=== PATIENT | female | born 2000 | race Caucasian/White ===

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

== ENCOUNTER 2022-05-27 19:33 | Emergency (ER) | payer MEDICAID ==
[~2022-05-27 19:33] MED LIST changes: +CEPH500T PO
--- NOTE | 2022-05-27 19:57 | ED GU-Female ---
General Stated Complaint: BLEEDING DURING Source: patient History of Present Illness Date Seen by Provider: May 27, 2022 Time Seen by Provider: 19:40 Initial Comments 21-year-old female presenting with complaints of having some vaginal bleeding starting approximately 30 minutes ago. She states that when she went to go to the bathroom she had noticed some blood and had some blood on the tissue when she wiped after urinating. She denies any pelvic pain or cramping. She had her last normal menstrual period April 21. She has been actively trying to get . She denies having any vaginal discharge or pain with urination. She denies any chronic medical conditions or medications that she takes on a scheduled basis. She plans to try and follow-up with Dr. Escalera from the [facility] for this . She had previously seen a provider in [place] for her first . She is and denies any complications or problems with the initial . She reports that she is under extra stress and thinks that may have triggered some of her symptoms tonight as she just found out last night that her sister is . Timing/Duration: just prior to arrival Severity/Quality: mild (spotting without pain and some pink tinge on the tissue when she wiped after urination) Activities at Onset: emotional stress Prior Genitourinary Problems: none Sexual [place] History: less than 2 months ago, single partner Modifying Factors: Worsens With Urinating (pink tinge on tissue paper after wiping) Associated Symptoms: No abdominal pain, No diaphoresis, No dysuria, No fever/chills, No loss of bladder control, No lower back pain, No lumps, No mass, No nausea/vomiting, No nocturia, No polyuria, No swelling, No syncope, No urinary frequency Allergies and Home Medications Allergies Coded Allergies: diphenhydramine (Unverified Adverse Reaction, Unknown, 05/27/22) Patient Home Medication List Home Medication List Reviewed: Yes Cephalexin (Cephalexin) 500 Mg Capsule, 500 MG PO TID Prescribed by: SHAHRZAD CURRY on 05/27/222024 Discontinued Medications Azithromycin (Azithromycin) 250 Mg Tablet, 250 MG PO DAILY Discontinued Reason: Referral/FU Appt-Addtl Prescribed by: ROSALBA PEREZ on 12/27/19 1504 Last Action: Discontinued Cephalexin (Cephalexin) 500 Mg Tablet, 500 MG PO QID Discontinued Reason: Referral/FU Appt-Addtl Prescribed by: KERRY KO on 10/24/212242 Last Action: Discontinued Hydroxyzine HCl (Hydroxyzine HCl) 25 Mg Tablet, 25 MG PO TID Discontinued Reason: Referral/FU Appt-Addtl Prescribed by: ROSALBA PEREZ on 11/14/192222 Last Action: Discontinued Lisdexamfetamine Dimesylate (Vyvanse) 20 Mg Capsule, (Reported) Discontinued Reason: Referral/FU Appt-Addtl Entered as Reported by: ARUN OMALLEY on 07/06/09 1314 Last Action: Discontinued Review of Systems Review of Systems Constitutional: No chills, No fever EENTM: no symptoms reported Respiratory: no symptoms reported Cardiovascular: no symptoms reported Gastrointestinal: no symptoms reported Genitourinary: see HPI : Yes LMP: Apr 21, 2022 Musculoskeletal: no symptoms reported Skin: No rash Psychiatric/Neurological: Denies Headache Past Ipumsxm-Zfaccc-Smfrzf Hx Patient Social History Tobacco Use?: No Use of E-Cig and/or Vaping dev: No Substance use?: No Alcohol Use?: No Immunizations Up To Date PED Vaccines UTD: Yes Seasonal Allergies Seasonal Allergies: No Past Medical History Surgeries: No Respiratory: No Cardiac: No Neurological: No Reproductive Disorders: No Sexually Transmitted Disease: No Genitourinary: No Gastrointestinal: No Musculoskeletal: No Endocrine: No HEENT: No Cancer: No Psychosocial: Yes Depression Integumentary: No Blood Disorders: No Physical Exam Vital Signs Vital Signs - First Documented 05/27/22 19:39 Temp 36.5 Pulse 100 Resp 16 B/P (MAP) 127/67 (87) Pulse Ox 100 O2 Delivery Room Air Capillary Refill : Height, Weight, BMI Height: 5'3.00" Weight: 190lbs. oz. 86.049504ju; 37.00 BMI Method:Stated General Appearance: WD/WN, no apparent distress HEENT: PERRL/EOMI, pharynx normal Neck: non-tender, full range of motion, supple Cardiovascular: normal peripheral pulses, regular rate, rhythm Respiratory: chest non-tender, lungs clear, normal breath sounds, no respiratory distress, no accessory muscle use Gastrointestinal: normal bowel sounds, non tender, no pulsatile mass Rectal: deferred Extremities: normal range of motion, non-tender, normal capillary refill Neurologic/Psychiatric: alert, oriented x 3 Skin: normal color, warm/dry Progress/Results/Core Measures Suspected Sepsis SIRS Temperature: Pulse: Respiratory Rate: Laboratory Tests 05/27/22 20:00: White Blood Count 8.6 Blood Pressure / Mean: Laboratory Tests 05/27/22 20:00: Platelet Count 222 Results/Orders Lab Results Laboratory Tests Test 05/27/22 19:40 05/27/22 20:00 Range/Units Urine Color RED H Urine Clarity CLOUDY Urine pH 6.5 5-9 Urine Specific [place] 1.025 H 1.016-1.022 Urine Protein 2+ H NEGATIVE Urine Glucose (UA) NEGATIVE NEGATIVE Urine Ketones NEGATIVE NEGATIVE Urine Nitrite NEGATIVE NEGATIVE Urine Bilirubin NEGATIVE NEGATIVE Urine Urobilinogen 0.2 < = 1.0 MG/DL Urine Leukocyte Esterase 2+ H NEGATIVE Urine RBC (Auto) 3+ H NEGATIVE Urine RBC >100 H /HPF Urine WBC 5-10 H /HPF Urine Squamous Epithelial Cells 2-5 /HPF Urine Crystals NONE /LPF Urine Bacteria FEW H /HPF Urine Casts NONE /LPF Urine Mucus SMALL H /LPF Urine Culture Indicated YES White Blood Count 8.6 4.3-11.0 10^3/uL Red Blood Count 4.71 3.80-5.11 10^6/uL Hemoglobin 10.9 L 11.5-16.0 g/dL Hematocrit 35 35-52 % Mean Corpuscular Volume 75 L 80-99 fL Mean Corpuscular Hemoglobin 23 L 25-34 pg Mean Corpuscular Hemoglobin Concent 31 L 32-36 g/dL Red Cell Distribution Width 15.2 H 10.0-14.5 % Platelet Count 222 130-400 10^3/uL Mean Platelet Volume 10.7 9.0-12.2 fL Immature Granulocyte % (Auto) 0 % Neutrophils (%) (Auto) 73 42-75 % Lymphocytes (%) (Auto) 18 12-44 % Monocytes (%) (Auto) 7 0-12 % Eosinophils (%) (Auto) 1 0-10 % Basophils (%) (Auto) 1 0-10 % Neutrophils # (Auto) 6.3 1.8-7.8 10^3/uL Lymphocytes # (Auto) 1.5 1.0-4.0 10^3/uL Monocytes # (Auto) 0.6 0.0-1.0 10^3/uL Eosinophils # (Auto) 0.1 0.0-0.3 10^3/uL Basophils # (Auto) 0.0 0.0-0.1 10^3/uL Immature Granulocyte # (Auto) 0.0 0.0-0.1 10^3/uL Human Chorionic Gonadotropin, Quant 4158 H <5 MIU/ML My Orders Orders - SHAHRZAD CURRY MD Ua Culture If Indicated (05/27/22 19:40) Hcg,Quantitative (05/27/22 19:40) Cbc With Automated Diff (05/27/22 19:40) Urine Bedside (05/27/22 19:40) Urine Culture (05/27/22 19:40) Vital Signs/I&O 05/27/22 19:39 Temp 36.5 Pulse 100 Resp 16 B/P (MAP) 127/67 (87) Pulse Ox 100 O2 Delivery Room Air Capillary Refill : Progress Note #1: Progress Note Potential diagnosis of threatened miscarriage, vaginal bleeding during , ectopic , urinary tract infection Obtain urine to check for infection as well as a bedside . Ordered blood to check blood count looking for signs of anemia or elevation of the white count for infection. Quantitative hCG from serum to have a baseline hormone level. If she continues to have bleeding or develops pain they can repeat this in 36 to 48 hours to see if it is changing. Can also order outpatient ultrasound if needed for elevated hCG level and developing pain with worsening bleeding. Patient denies having intercourse or anything just prior to the vaginal bleeding other than being under extra stress since she just found out that her sister . Defer vaginal speculum exam to avoid additional cervix irritation. If she has heavier bleeding or develops pain then may need to perform speculum exam. Progress Note #2: Progress Note Blood count showed hemoglobin of 10.9 with an MCV of 75. This would be consistent with some possible iron deficiency anemia. Have patient see about starting vitamins with iron. The urinalysis had shown some leukocyte Estrace 2+ with bacteria and white blood cells in addition to the blood. Will prescribe 5-day course of cephalexin 500 mg p.o. 3 times daily to treat for urinary tract infection during . In terms of the quantitative hCG level her test came back at 4158. This is within range for early at approximately 5 weeks estimated gestational age based off of her last menstrual period. Counseled patient that if she had heavier bleeding she should return or be seen again. Have a repeat hormone level test in approximately 48 to 72 hours. Patient states she is going on to have blood work done for the to get established with Dr. Escalera. Counseled that if she has pain, fever over 101 F, or bleeding to point that she saturates more than a pad an hour for 2 hours she should return or be rechecked. There is a potential for miscarriage with any bleeding during but she has a reason for spotting between stress from learning of her sister's and having UTI. Counseled to avoid inserting anything in the vagina until she is seen in clinic for follow up. No sex and no tampons. If she has pain or heavier bleeding an ultrasound may be done to look for ectopic or incomplete miscarriage. Departure Impression Primary Impression: Spotting during in first trimester Additional Impression: UTI (urinary tract infection) in in first trimester Disposition: 01 HOME, SELF-CARE Condition: Stable Departure-Patient Inst. Decision time for Depature: 20:23 Referrals: [facility] (PCP/Family) Primary Care Physician DONTA SYED HOLLY R MD Patient Instructions: Bleeding in Early ED, Urinary Tract Infections in , Bleeding In Early Add. Discharge Instructions: Stay well hydrated and drink plenty of water and electrolyte drinks. Take the antibiotic for urine infection in early for the next 5 days. Your Quantitative HCG hormone level in the blood for your is 4,158. If having continued spotting/bleeding you should have this lab rechecked in 48 to 72 hours. If having increased bleeding where you saturate more than 1 pad an hour for 2 hours, pelvic cramping, fever over 101 F then return or be seen in clinic. Call [facility] clinic in am to see about follow up with Dr. Escalera for and for your symptoms. Dr. Syed with [facility] is another option for provider to follow up with for your spotting and this . No sex or anything inserted in the vagina until after you are seen in clinic for follow up. Having sex or inserting tampons can cause worsening bleeding Scripts Cephalexin (Cephalexin) 500 Mg Capsule 500 MG PO TID for UTI for 5 Days, #15 CAP 0 Refills Prov: SHAHRZAD CURRY MD 05/27/22 SHAHRZAD CURRY MD May 27, 2022 19:57
[2022-05-27 19:59] LABS: BASOPHILS % (AUTO) 1 % (0-10); EOSINOPHILS # (AUTO) 0.1 10^3/uL (0.0-0.3); EOSINOPHILS % (AUTO) 1 % (0-10); HEMATOCRIT 35 % (35-52); HEMOGLOBIN 10.9 g/dL (11.5-16.0); LYMPHOCYTES # (AUTO) 1.5 10^3/uL (1.0-4.0); LYMPHOCYTES % (AUTO) 18 % (12-44); MEAN CORPUSCULAR HEMOGLOBIN 23 pg (25-34); MEAN CORPUSCULAR HGB CONC 31 g/dL (32-36); MEAN CORPUSCULAR VOLUME 75 fL (80-99); MEAN PLATELET VOLUME 10.7 fL (9.0-12.2); MONOCYTES # (AUTO) 0.6 10^3/uL (0.0-1.0); MONOCYTES % (AUTO) 7 % (0-12); NEUTROPHILS # (AUTO) 6.3 10^3/uL (1.8-7.8); NEUTROPHILS % (AUTO) 73 % (42-75); PLATELET COUNT 222 10^3/uL (130-400); WHITE BLOOD COUNT 8.6 10^3/uL (4.3-11.0)
[2022-05-27 20:00] LABS: BILIRUBIN,URINE NEGATIVE (NEGATIVE); CLARITY,URINE CLOUDY; COLOR,URINE RED; GLUCOSE, URINE (UA) NEGATIVE (NEGATIVE); KETONES,URINE NEGATIVE (NEGATIVE); LEUKOCYTE ESTERASE ,URINE 2+ (NEGATIVE); NITRITE,URINE NEGATIVE (NEGATIVE); PH,URINE 6.5 (5-9); PROTEIN,URINE 2+ (NEGATIVE)
[2022-05-27 20:09] LABS: BACTERIA,URINE FEW /HPF; RBC,URINE >100 /HPF
[2022-05-27] MEDS ORDERED: CEPH500C PO (20:25)
[2022-05-27 20:35] VITALS: BP 127/67
== END 2022-05-27 20:35 | disposition home or self-care (01) ==
LOC: EDUNIT# 19:33 → ER FS 19:35
DX: O26.851 Spotting complicating pregnancy, first trimester (principal); O23.41 Unspecified infection of urinary tract in pregnancy, first trimester; N39.0 Urinary tract infection, site not specified; Z28.310 Unvaccinated for COVID-19; Z3A.00 Weeks of gestation of pregnancy not specified
CPT/HCPCS: 36415; 81000; 84702; 84703; 85025; 87088

== ENCOUNTER 2022-06-08 23:58 | Emergency (ER) | payer MEDICAID ==
[~2022-06-08] VITALS: Ht 160 cm; Wt 104.0 kg
[~2022-06-08 23:58] MED LIST changes: +CEPH500C PO
--- NOTE | 2022-06-09 00:34 | ED General ---
General Chief Complaint: Exposure Stated Complaint: NEEDLESTICK Source of Information: Patient Exam Limitations: No Limitations History of Present Illness Date Seen by Provider: Jun 09, 2022 Time Seen by Provider: 00:34 Initial Comments Patient is a 21-year-old female who presents to the emergency room with chief complaint of concern for needlestick injury to the index finger of her left hand. 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 She went to recap the needle and stuck her index finger on the lateral aspect with the insulin needle. It did not bleed. No other complaints of illness or injury. Her boss advised her to come to the ER to get "checked" this evening. Patient states she is , first day of her last menstrual cycle was April 21. She did have some spotting/bleeding about 2 weeks ago, none currently, no pain. Patient does not take any daily medications. She is a G2, P1. She has scheduled care through [facility] on June 24. She is reporting the injury to [employer]. this evening. Timing/Duration: 4-6 Hours (at 1930) Severity: Mild Associated Systoms: Denies Symptoms Allergies and Home Medications Allergies Coded Allergies: diphenhydramine (Unverified Adverse Reaction, Unknown, Rash, 06/09/22) Patient Home Medication List Home Medication List Reviewed: Yes Cephalexin (Cephalexin) 500 Mg Capsule, 500 MG PO TID Prescribed by: SHAHRZAD CURRY on 05/27/222024 Review of Systems Review of Systems Constitutional: see HPI EENTM: no symptoms reported Respiratory: no symptoms reported Cardiovascular: no symptoms reported Gastrointestinal: no symptoms reported Genitourinary: no symptoms reported : Yes LMP: Apr 21, 2022 Musculoskeletal: no symptoms reported Skin: other (needle stick left index finger) All Other Systems Reviewed Negative Unless Noted: Yes Past Nqblrbf-Jondyv-Cmrwok Hx Patient Social History Tobacco Use?: No Substance use?: No Alcohol Use?: No Immunizations Up To Date PED Vaccines UTD: Yes Influenza Vaccine Up-to-Date: Yes; Up-to-Date First/Initial COVID19 Vaccinat: Unvaccinated Second COVID19 Vaccination Juan: Unvaccinated Third COVID19 Vaccination Date: Unvaccinated Seasonal Allergies Seasonal Allergies: No Past Medical History Surgeries: No Respiratory: No Cardiac: No Neurological: No Reproductive Disorders: No Sexually Transmitted Disease: No Genitourinary: No Gastrointestinal: No Musculoskeletal: No Endocrine: No HEENT: No Cancer: No Psychosocial: Yes Depression Integumentary: No Blood Disorders: No Physical Exam Vital Signs Vital Signs - First Documented 06/09/22 00:18 Temp 36.5 Pulse 75 Resp 16 B/P (MAP) 127/70 (89) Pulse Ox 98 O2 Delivery Room Air Capillary Refill : Height, Weight, BMI Height: 5'3.00" Weight: 190lbs. oz. 86.849255zs; 37.00 BMI Method:Stated General Appearance: No Apparent Distress, WD/WN Eyes: Bilateral Eye Normal Inspection, Bilateral Eye PERRL HEENT: PERRL/EOMI Respiratory: Lungs Clear, Normal Breath Sounds, No Accessory Muscle Use, No Respiratory Distress Cardiovascular: Regular Rate, Rhythm Extremity: Normal Capillary Refill, Normal Inspection, Normal Range of Motion Neurologic/Psychiatric: Alert, Oriented x3, No Motor/Sensory Deficits Skin: Normal Color, Warm/Dry, Other (no injury/open wound noted to left index finger) Progress/Results/Core Measures Suspected Sepsis SIRS Temperature: Pulse: Respiratory Rate: Blood Pressure / Mean: Results/Orders Lab Results Laboratory Tests Test 06/09/22 01:02 Range/Units My Orders Orders - VINAY HAND MD Hiv 1&2 Antibody (06/09/22 00:44) Hepatitis Panel Acute (06/09/22 00:44) Vital Signs/I&O 06/09/22 06/09/22 00:18 01:05 Temp 36.5 36.5 Pulse 75 71 Resp 16 16 B/P (MAP) 127/70 (89) 127/70 Pulse Ox 98 99 O2 Delivery Room Air Room Air Capillary Refill : Progress Note : Time: 00:47 Progress Note 21-year-old female with needlestick injury. Evaluation today includes physical exam. Differential diagnosis based on history and physical, exposure to HIV/hepatitis. Patient states that she reviewed the medical record of the patient she gave insulin 2. She could not find any references to hepatitis or HIV. I had a long discussion with the patient regarding the low risk nature of this injury. It was not a large bore needle and it had not been in a large vessel of the patient. She states she feels like it was more of a graze or scrape than an actual puncture. Patient states that she is currently . I told her that the risk of starting antiretroviral therapy would outweigh the benefit at this point. Very low likelihood of seroconversion if indeed the patient that she gave the injection 2 was positive. She will need to have follow-up closely with [facility] at the 3-month, 6-month and 1 year sarkis. She has scheduled appointment for June 24. We will go ahead and draw HIV and hepatitis at this visit so she has a baseline. Patient is reassured. She verbalized understanding. All questions are sought and answered. Patient is stable for discharge. Departure Impression Primary Impression: Needle stick injury of finger of left hand Disposition: HOME, SELF-CARE Condition: Stable Departure-Patient Inst. Referrals: [facility] (PCP/Family) Primary Care Physician Add. Discharge Instructions: Please keep your appointment for your Care visit on June 24. Let them know about your exposure and they can arrange for your follow up testing over the course of the next year. It is very important that you have repeat testing done - most likely at the 3 month, 6 month and 12 month sarkis. Take your vitamins daily. Return to the Emergency Department for any new, concerning or emergent complaints. Copy Copies To 1: DIMITRIOS GRAHAM KATHRYN M MD Jun 09, 2022 00:34
[2022-06-09 01:05] VITALS: BP 127/70
[2022-06-10 14:22] LABS: HEPATITIS C ANTIBODY C Non-Reactive (Non-Reactive)
== END 2022-06-09 01:05 | disposition home or self-care (01) ==
LOC: EDUNIT# 23:58 → ER 23:59
DX: O9A.211 Injury, poisoning and certain other consequences of external causes complicating pregnancy, first trimester (principal); S69.92XA Unspecified injury of left wrist, hand and finger(s), initial encounter; Z3A.00 Weeks of gestation of pregnancy not specified; W46.1XXA Contact with contaminated hypodermic needle, initial encounter; Y92.009 Unspecified place in unspecified non-institutional (private) residence as the place of occurrence of the external cause; Y92.59 Other trade areas as the place of occurrence of the external cause; Y99.0 Civilian activity done for income or pay
CPT/HCPCS: 36415; 80074; 87389; 99281

== ENCOUNTER 2023-01-21 05:58 | Inpatient (IN) | payer MEDICAID ==
[2023-01-21] VITALS (54 sets, daily range): BP systolic 97–158; BP diastolic 50–86
[~2023-01-21] VITALS: Ht 160 cm; Wt 108.1 kg
--- OUTSIDE RECORDS SUMMARY | 2023-01-21 06:02 | XMS REPORT ---
Author Author [facility] Address Unknown Phone Unavailable Care Team Providers Care Paperboard Boxes Estimator Name Role Phone DIMITRIOS GRAHAM Unavailable PROBLEMS Type Condition ICD9-CM Code [id number] Code Onset Dates Condition Status W/U Status Risk SNOMED Code Notes Problem Obesity affecting in second trimester O99.212 confirmed 328067507020 ALLERGIES Allergen (clinical drug ingredient) Drug/Non Drug Allergy documented on EMR Reaction Allergy Type Onset Date Status diphenhydramine Benadryl rash Drug Allergy A ctive ENCOUNTERS from 2002 to 2022-09-17 Encounter Location Date Provider Diagnosis [facility] [id number] [place] [address] Sep, DIMITRIOS GRAHAM Nasal congestion R09.81 and Loss of taste R43.2 IMMUNIZATIONS Vaccine Route Administration Date Status menveo mcv40 (history) Unknown Dec 07, 2014 Admin istered tdap (history) Unknown Dec 07, 2014 Administered pediarix dtap/hep b/ipv (history) Unknown 2002 Administered pediarix dtap/hep b/ipv (history) Unknown May 13, 2003 Administered varivax (history) Unknown Jan 05, 2004 Administe red varivax (history) Unknown July 16, 2007 Administ ered prevnar pcv 7 (history) Unknown 2002 Admi nistered hepatitis b pediatric (history) Unknown 2002 Administered hib (history) Unknown October 12, 2003 Administered hib (history) Unknown May 13, 2003 Administered hib (history) Unknown Feb 08, 2003 Administered hib (history) Unknown 2002 Administered prevnar pcv 7 (history) Unknown Apr 17, 2004 Admi nistered prevnar pcv 7 (history) Unknown Jan 05, 2004 Adm inistered prevnar pcv 7 (history) Unknown Feb 08, 2003 Admi nistered mmr-II (history) Unknown July 16, 2007 Administe red polio ipv (history) Unknown October 12, 2003 Adminis tered polio ipv (history) Unknown Mar 25, 2012 Administ ered dtap (history) Unknown Feb 08, 2003 Administered hepatitis a (history) Unknown July 16, 2007 Admi nistered hepatitis a (history) Unknown Apr 11, 2008 Admini stered mmr-II (history) Unknown October 12, 2003 Administer ed dtap (history) Unknown October 12, 2003 Administered dtap (history) Unknown July 16, 2007 Administere d gardasil-4 (history) Unknown Dec 07, 2014 Adminis tered SOCIAL HISTORY Sex Assigned At : Social History Observation Description Sex Assigned At Female Alcohol Screen (Audit-C) Question Answer Notes Did you have a drink containing alcohol in the p ast year? No Points 0 Interpretation Negative Sexual History Question Answer Notes Had sex in the past 12 months (vaginal, oral, or anal)? Yes Last menstrual period 06/03/2022 Have you ever had a Sexually transmitted disease ? No with Men only Use protection? No PHQ2 Question Answer Notes In the last 2 weeks, how oft en have you had little interest or pleasure in doing things? Not at all In the last 2 weeks, how oft en have you been feeling down, depressed, or hopeless? Not at all Total PHQ2 Score 0 Tobacco use other than smoking: Question Answer Notes Are you an other tobacco user? No REASON FOR REFERRAL No Information MEDICATIONS Medication SIG (Take, Route, Fr equency, Duration) Notes Start Date End Date Status 28-0.8 MG 1 tablet Orally Once a day Active REASON FOR VISIT loss of taste/smell, congestion, no known exposure, no vax (in [place] focus), Positive for Covid 01/09/20 MEDICAL (GENERAL) HISTORY Type Description Date Medical History Encounter for contraceptive huseyin gement, unspecified Medical History COVID + 01/06/20 Hospitalization History childbirth 02/09 MENTAL STATUS No Information ASSESSMENTS Encounter Date Diagnosis Assessment Notes Treatment Notes Treatment Clinical Notes Sep, Loss of taste (ICD-10 - R43.2) Sep, Nasal congestion (ICD-10 - R09.81) PLAN OF TREATMENT Next Appt Details Provider Name:MARIO BERUMEN, Radha 10:00:00 AM, [address] [place], [address], Provider Name:MARIO BERUMEN, Radha 11:00:00 AM, [address] [place], [address], Insurance Providers Payer Name Payer Address Payer Phone Insured Name Patient Relationship to Insured Coverage Start Date Coverage End Date Subscriber Number Group Number NON FORMERLY [facility] [employer] [address] [facility] [phone] Joey Sheridan A Self - patient is the insured [id number] [employer] [address] [facility] [phone] Joey Sheridan A Self - patient is the insured [id number] [employer] [address] [address] Attn: Accounts Payable [facility] [id number] [phone] Joey Sheridan A Self - patient is the insured [facility] [address] [facility] [id number] Joey Sheridan A Self - patient is the insured 1 MEDICATIONS ADMINISTERED Medication Instructions Date of Administration Dosag e DEPO PROVERA (150 MG/ML) Oct, 150 mg DEPO PROVERA (150 MG/ML) Jul, 150 mg DEXAMETHASONE 20MG/5 ML (PER 1 MG) August 4 mg DEPO PROVERA (150 MG/ML) Jun, 150 mg DEPO PROVERA (150 MG/ML) Jan, 150 mg DEPO PROVERA (150 MG/ML) Jul, 150 mg DEPO PROVERA (150 MG/ML) Mar, 150 mg DEPO PROVERA (150 MG/ML) Sep, 150 mg DEPO MEDROL 40 MG/ML August, 40 mg
--- OUTSIDE RECORDS SUMMARY | 2023-01-21 06:02 | XMS REPORT | Clinical Summary ---
Author Author [facility] Organization [facility] Address Unknown Phone Unavailable Care Team Providers Care Conventional Mortgage Underwriter Name Role Phone Marisel Batista MD PCP [phone] Allergies Active Allergy Reactions Criticality Noted Date Comments Diphenhydramine Rash Low 03/07/2016 Medications No known medications Active Problems No known active problems Immunizations Name Administration Dates Next Due DTP (WebIZ registry) 07/16/2007,10/12/2003,02/08 DTaP/Hep B/IPV 05/13/2003,2002 HPV, quadrivalent (Gardasil) 12/07/2014 Hep B,adolescent or pediatric 2002 Hepatitis A, Ped/adol, 2 dose 04/11/2008, 008 HiB (PRP-T) 2002 HiB PRP-OMP (PedvaxHIB) 10/12/2003,05/13/2003, IPV 03/25/2012,10/12/2003 Influenza LAIV3 Nasal 04/11/2008 Influenza TIV (HX thru Jan 18 2010) 04/17/2004 MMR 07/16/2007,10/12/2003 Meningococcal oliogosacchari de (WebIZ Registry) 12/07/2014 Pneumococcal Conjugate (7-va lent) -WebIZ Registry 04/17/2004,01/05/2004,02/08/2003,11/20 Tdap 12/07/2014 Varicella (Varivax) 07/16/2007,01/05/2004 Social History Tobacco Use Types Packs/Day Years Used Date Smoking Tobacco: Never Smokeless Tobacco: Never Alcohol Use Standard Drinks/Week Comments No 0 (1 standard drink = 0.6 oz pur e alcohol) Sexually Active Control Partners Comments Never Sex and Gender Information Value Date Recorded Sex Assigned at Not on file Gender Identity Not on file Sexual Orientation Not on file Last Filed Vital Signs Vital Sign Reading Time Taken Comments Blood Pressure 116/74 03/07/2016 9:22 AM DEMURRAGE AGENT Pulse 72 03/07/2016 9:22 AM DEMURRAGE AGENT Temperature 36.9 °C (98.5 °F) 03/07/2016 9:22 AM DEMURRAGE AGENT Respiratory Rate 20 03/07/2016 9:2 2 AM DEMURRAGE AGENT Oxygen Saturation - - Inhaled Oxygen Concentration - - Weight 61.1 kg (134 lb 12.8 oz) 016 9:22 AM DEMURRAGE AGENT Height 156.2 cm (5' 1.5") 03/07/2016 9 :22 AM DEMURRAGE AGENT Body Mass Index 25.06 03/07/2016 9:22 AM DEMURRAGE AGENT Plan of Treatment Health Maintenance Due Date Last Done Comments COVID-19 Vaccine (#1) 04/09/2003 HPV Vaccines (2 - 2-dose series) 06/09/2015 12/07/2014 MenB Vaccine (Bexsero) (1 of 2) 2018 Hepatitis C Screening 2020 Influenza Vaccine (#1) 2023 04/11/2008, 2003 DTaP,Tdap,and Td Vaccines (7 - Td or Tdap) 12/07/2024 12/07/2014, 07/16/2007, 10/12/2003, Additional history exists HIB Vaccines Completed 10/12/2003, 04/22, 02/08/2003, Additional history exists MMR Vaccines-Adult Completed 07/16/2007, 10/12/2003 Varicella Vaccines Completed 07/16/2007, 01/05/2004 IPV Vaccines Completed 03/25/2012, 09/20, 05/13/2003, Additional history exists Meningococcal Vaccine Aged Out 12/07/2014 No jung ashley eligible based on patient's age to complete this topic Pneumo-Vaccine: At Risk 6-64 Yrs Aged Out No longer eligible based on patient's age to complete this topic Rotavirus Vaccines Aged Out No longer eligible based on patient's age to complete this topic Insurance Payer Benefit Plan / Group Subscriber ID Effective Dates Phone Address Type Fresh Dish [id number] 2016-Pre sent [address] [place] [address] Care Teams Conventional Mortgage Underwriter Relationship Specialty Start Date End Date Marisel Batista MD [address] [place] [address] [email or web address] PCP - General Pediatrics 03/01/16
--- OUTSIDE RECORDS SUMMARY | 2023-01-21 06:02 | XMS REPORT ---
Author Author [facility] Address Unknown Phone Unavailable Care Team Providers Care Live Truck Technician Name Role Phone DIMITRIOS GRAHAM Unavailable PROBLEMS Type Condition ICD9-CM Code [id number] Code Onset Dates Condition Status W/U Status Risk SNOMED Code Notes Problem care in third trimester Z34.93 confirmed [id number] ALLERGIES Allergen (clinical drug ingredient) Drug/Non Drug Allergy documented on EMR Reaction Allergy Type Onset Date Status diphenhydramine Benadryl rash Drug Allergy A ctive ENCOUNTERS from 2002 to 2022-12-21 Encounter Location Date Provider Diagnosis [address] [id number] [address] Dec, DIMITRIOS GRAHAM Pre-employment drug screening Z02.1 IMMUNIZATIONS Vaccine Route Administration Date Status polio ipv (history) Unknown Mar 25, 2012 Administ ered polio ipv (history) Unknown October 12, 2003 Adminis tered mmr-II (history) Unknown October 12, 2003 Administer ed pediarix dtap/hep b/ipv (history) Unknown 2002 Administered dtap (history) Unknown July 16, 2007 Administere d dtap (history) Unknown October 12, 2003 Administered dtap (history) Unknown Feb 08, 2003 Administered PRIVATE TDAP (BOOSTRIX) IM Intramuscular Nov 25, 2022 Administered hepatitis b pediatric (history) Unknown 2002 Administered hepatitis a (history) Unknown July 16, 2007 Admi nistered hepatitis a (history) Unknown Apr 11, 2008 Admini stered menveo mcv40 (history) Unknown Dec 07, 2014 Admin istered varivax (history) Unknown July 16, 2007 Administ missy varivax (history) Unknown Jan 05, 2004 Adminbong mai gardasil-4 (history) Unknown Dec 07, 2014 Adminis andrew mmr-II (history) Unknown July 16, 2007 Administute mai hib (history) Unknown 2002 Administered prevnar pcv 7 (history) Unknown Apr 17, 2004 Admi nistered prevnar pcv 7 (history) Unknown Jan 05, 2004 Adm inistered prevnar pcv 7 (history) Unknown Feb 08, 2003 Admi nistered hib (history) Unknown October 12, 2003 Administered hib (history) Unknown May 13, 2003 Administered hib (history) Unknown Feb 08, 2003 Administered prevnar pcv 7 (history) Unknown 2002 Admi nistered tdap (history) Unknown Dec 07, 2014 Administered pediarix dtap/hep b/ipv (history) Unknown May 13, 2003 Administered SOCIAL HISTORY Sex Assigned At : Social [...] Once a day Active REASON FOR VISIT No Information MEDICAL (GENERAL) HISTORY Type Description Date Medical History Encounter for contraceptive huseyin muller, unspecified Medical History COVID + 01/06/20 Hospitalization History childbirth 02/09 MENTAL STATUS No Information ASSESSMENTS Encounter Date Diagnosis Assessment Notes Treatment Notes Treatment Clinical Notes Dec, Pre-employment drug screening (ICD-10 - Z02.1) PLAN OF TREATMENT Next Appt Details Provider Name:DORIE HILLMAN, 2022-12-25 11:00:00 AM, [address] [place] [address], [phone], Provider Name:MARIO BERUMEN, 2 11:00:00 AM, [address] [place] [address], [phone], Provider Name:MARIO BERUMEN, 2 11:00:00 AM, [address] [place] [address], [phone], Provider Name:DORIE HILLMAN, 2023-01-13 11:00:00 AM, [address] [place] [address], [phone], Provider Name:MARIO BERUMEN, 2 11:00:00 AM, [address] [place] [address], [phone], Provider Name:MARIO BERUMEN, 2 11:00:00 AM, [address] [place] [address], [phone], Insurance Providers Payer Name Payer Address Payer Phone Insured Name Patient Relationship to Insured Coverage Start Date Coverage End Date Subscriber Number Group Number [facility] [address] [facility] [address] Joey Sheridan A Self - patient is the insured 1 NON [facility] [employer] [address] [facility] [id number] Joey Sheridan A Self - patient is the insured [id number] [employer] CHIP [address] [facility] [phone] Joey Sheridan A Self - patient is the insured [id number] [employer] [address] [address] Attn: Accounts Payable [facility] [address] Joey Sheridan A Self - patient is the insured 3 MEDICATIONS ADMINISTERED Medication Instructions Date of Administration Dosag e DEPO MEDROL 40 MG/ML August, 40 mg DEPO PROVERA (150 MG/ML) Jun, 150 mg DEPO PROVERA (150 MG/ML) Mar, 150 mg DEPO PROVERA (150 MG/ML) Jan, 150 mg DEPO PROVERA (150 MG/ML) Oct, 150 mg DEPO PROVERA (150 MG/ML) Jul, 150 mg DEXAMETHASONE 20MG/5 ML (PER 1 MG) August 4 mg DEPO PROVERA (150 MG/ML) Sep, 150 mg DEPO PROVERA (150 MG/ML) Jul, 150 mg
[2023-01-21] MEDS ORDERED: AMPICILLIN (IV) 2,000 MG in NS (IVPB) 50 ML 50 ML IV SCH (07:19)
[2023-01-21] MEDS ORDERED: D5 LR 1,000 ML IV SOLN 1,000 ML IV SCH (07:30)
[2023-01-21] MEDS ORDERED: LACTATED RINGERS 1,000 ML 500 ML IV PRN (07:30)
[2023-01-21] MEDS ORDERED: MINERAL OIL 30 ML UDC TOP PRN (07:30)
[2023-01-21] MEDS ORDERED: OXYTOCIN DRIP PRE-MIX 500 ML IV SCH (07:30)
[2023-01-21 08:32] LABS: BASOPHILS % (AUTO) 0 % (0-10); EOSINOPHILS # (AUTO) 0.1 10^3/uL (0.0-0.3); EOSINOPHILS % (AUTO) 1 % (0-10); HEMATOCRIT 23 % (35-52); LYMPHOCYTES # (AUTO) 2.2 10^3/uL (1.0-4.0); LYMPHOCYTES % (AUTO) 17 % (12-44); MEAN CORPUSCULAR HEMOGLOBIN 23 pg (25-34); MEAN CORPUSCULAR HGB CONC 29 g/dL (32-36); MEAN CORPUSCULAR VOLUME 77 fL (80-99); MEAN PLATELET VOLUME 11.8 fL (9.0-12.2); MONOCYTES # (AUTO) 0.9 10^3/uL (0.0-1.0); MONOCYTES % (AUTO) 7 % (0-12); NEUTROPHILS # (AUTO) 9.9 10^3/uL (1.8-7.8); NEUTROPHILS % (AUTO) 75 % (42-75); PLATELET COUNT 254 10^3/uL (130-400); WHITE BLOOD COUNT 13.2 10^3/uL (4.3-11.0)
[2023-01-21 08:35] LABS: HEMOGLOBIN 6.8 g/dL (11.5-16.0)
--- NOTE | 2023-01-21 08:56 | History & Physical-OB ---
OB - Chief Complaint & HPI Date/Time Date of Admission: Date of Admission: Jan 21, 2023 at 05:58 Date seen by a Provider: Jan 21, 2023 Time Seen by a Provider: 07:45 Chief Complaint/History OB-Reason for Admission/Chief: Induction of Labor (elective) Hx : 2 Hx Para: 1 Gestational Age in Weeks: 39 Gestational Age in Days: 2 History of Labs A+, Ab neg, Rub NON IMMUNE HIV/RPR/HepB/C NR Normal 1 hr GTT GBS POS Allergies and Home Medications Allergies Coded Allergies: diphenhydramine (Unverified Adverse Reaction, Unknown, Rash, 06/09/22) Patient Home Medication List Home Medication List Reviewed: Yes Cephalexin (Cephalexin) 500 Mg Capsule, 500 MG PO TID Prescribed by: SHAHRZAD CURRY on 05/27/222024 OB - History Hx of Present Ultrasounds: Normal mid trimester US Obstetrical Complications: None Medical Complications: None Obstetrical History Hx : 2 Hx Para: 1 Number of Living Children: 1 Delivery History Hx Blood Disorders: No Patient Past Medical History N/A Social History/Family History Alcohol Use: Denies Use Recreational Drug Use: No Smoking Cessation: Never smoker 2nd Hand Smoke Exposure: No Immunizations Influenza Vaccine Up-to-Date: No; Not Current First/Initial COVID19 Vaccine: Unvaccinated Second COVID19 Vaccination: Unvaccinated Third COVID19 Vaccination Date: Unvaccinated Rubella: not immune RPR/VDRL: Negative GBS Status: Positive HBsAG: Negative OB - Admission Exam Physical Exam Vitals: Vital Signs 01/21/23 07:45 Temp 36.1 Pulse 74 Resp 18 Pulse Ox 97 O2 Delivery Room Air HEENT: NCAT Heart: Rhythm Normal Lungs: Clear Abdomen: Gravid Cervical Dilatation: 2cm Effacement: 50% Station: -1 Membranes: Intact Heart Rate: 140's Accelerations: Accelerations Present Decelerations: No Decelerations Short Term Variability: Present Cook Pickled Meat Variability: Average (6-25) Contractions on Admission: 6-10 Minutes Apart Intensity: Moderate Carranza Scoring Tool (Modified) Dilation (cm): 1-2cm (1) Effacement (%): 31-51% (1) Descent/Station: -1,0 (2) Cervix Consistency: Medium(1) Cervix Position: Middle/Mid-Position (1) Add 1 point for: Each previous vaginal delivery (1) Carranza Score: 7 Labs Laboratory Tests Test 01/21/23 07:55 01/21/23 08:00 Range/Units Syphilis Total Antibody Negative Negative White Blood Count 13.2 H 4.3-11.0 10^3/uL Red Blood Count 3.02 L 3.80-5.11 10^6/uL Hemoglobin 6.8 *L 11.5-16.0 g/dL Hematocrit 23 L 35-52 % Mean Corpuscular Volume 77 L 80-99 fL Mean Corpuscular Hemoglobin 23 L 25-34 pg Mean Corpuscular Hemoglobin Concent 29 L 32-36 g/dL Red Cell Distribution Width 17.3 H 10.0-14.5 % Platelet Count 254 130-400 10^3/uL Mean Platelet Volume 11.8 9.0-12.2 fL Immature Granulocyte % (Auto) 1 % Neutrophils (%) (Auto) 75 42-75 % Lymphocytes (%) (Auto) 17 12-44 % Monocytes (%) (Auto) 7 0-12 % Eosinophils (%) (Auto) 1 0-10 % Basophils (%) (Auto) 0 0-10 % Neutrophils # (Auto) 9.9 H 1.8-7.8 10^3/uL Lymphocytes # (Auto) 2.2 1.0-4.0 10^3/uL Monocytes # (Auto) 0.9 0.0-1.0 10^3/uL Eosinophils # (Auto) 0.1 0.0-0.3 10^3/uL Basophils # (Auto) 0.0 0.0-0.1 10^3/uL Immature Granulocyte # (Auto) 0.1 0.0-0.1 10^3/uL OB - Assessment/Plan/Diagnosis Assessment Assessment: group B positive strep, induction of labor Admission Dx Third Trimester 39 week gestation GBS in Asymptomatic anemia in Admission Status: Inpatient Order (span 2 midnights) Reason for Inpatient Admission: Labor and immediate post care Plan Other Plan 22 yo @ 39.2 wga here for elective IOL Plan - Expectant management - GBS Pos: Start ampicillin - Anemia: will recheck H/H MARIO BERUMEN MD Jan 21, 2023 08:56
[2023-01-21] MEDS ORDERED: fentaNYL 2 mcg/ml BUPIVA 0.125 100 ML ONE (09:42)
[2023-01-21] MEDS ORDERED: fentaNYL INJECTION 100 MCG/2 ML VIAL ONE (11:02)
[2023-01-21] MEDS ORDERED: BUPIVACAINE 0.25% 10 ML VIAL ONE (11:02)
[2023-01-21] MEDS ORDERED: AMPICILLIN (IV) 1,000 MG in NS (IVPB) 50 ML 50 ML IV SCH (11:30)
[2023-01-21] MEDS ORDERED: ONDANSETRON INJECTION 4 MG/2 ML (SDV) IV PRN (11:45)
[2023-01-21] MEDS ORDERED: LACTATED RINGERS 1,000 ML 1,000 ML IV ONE ×2 (11:45)
[2023-01-21] MEDS ORDERED: fentaNYL 2 mcg/ml BUPIVA 0.125 100 ML EPI SCH (11:45)
[2023-01-21] MEDS ORDERED: fentaNYL INJECTION 100 MCG/2 ML VIAL INJ ONE (11:45)
[2023-01-21] MEDS ORDERED: NALOXONE 0.4 MG/ML 1 ML VIAL IV PRN (11:45)
[2023-01-21] MEDS ORDERED: LIDOCAINE PF 2% 5 ML VIAL ONE (13:44)
[2023-01-21] MEDS: OXYTOCIN DRIP PRE-MIX 500 ML IV SCH ×2 (13:58→14:27)
[2023-01-21] MEDS ORDERED: CATHETER FLUSH 10 ML SYR IV SCH ×2 (14:00→22:00)
[2023-01-21] MEDS ORDERED: LIDOCAINE 2% w/EPI 1:200,000 20 ML VIAL ONE (14:06)
[2023-01-21] MEDS ORDERED: MEASLES, MUMPS, RUBELLA VACCINE (MMR) SQ ONE (16:45)
[2023-01-21] MEDS ORDERED: BENZOCAINE/MENTHOL (DERMOPLAST) 56 ML CAN TP PRN (16:45)
[2023-01-21] MEDS ORDERED: WITCH HAZEL(TUCKS) 40 EA JAR TOP PRN (16:45)
[2023-01-21] MEDS: IBUPROFEN 600 MG TABLET PO PRN (17:30)
--- NOTE | 2023-01-21 18:23 | OB Labor & Delivery Record ---
Vag Delivery Note Vag Delivery Note Date of Delivery: 01/21/23 Preoperative Diagnosis: Joey Pineda is a (22 /Para 2 / 1, Gestational Age (wks)39.2 wga here for elective IOL Postoperative Diagnosis: Same Attending Surgeon/Physician: Mario Escalera MD Manager Labor Delivery: None Anesthesia: Epidural Delivery Type: @ 1352 Findings: Viable Male , apgars 8/9, weight 7#4, 3300 grams Lacerations: 2nd degree perineal laceration Intact placenta with 3 vessel cord. No nuchal cord, body cord or shoulder dystocia Estimated Blood Loss: 125 ml Complications: None Condition: Stable Description of Procedure: The patient is a 22 year old female who presented for elective IOL. She was admitted and informed consent was obtained. Her labor course was remarkable for GBS Positive and pitocin augmentation. She progressed to complete dilatation and began to push. She was then set up for delivery. The 's head was delivered atraumatically in the FROYLAN position. The shoulders and remainder of the 's body were then delivered without difficulty. Upon delivery, the was vigorous and placed on maternal chest and the mouth and nares were bulb suctioned. After a 2 min delay cord was doubly clamped and cut by FOB and the infant remained on maternal chest. An intact placenta with 3-vessel cord delivered via Pancho and there was found to be minimal bleeding.~ Vigorous fundal massage was performed and the fundus was found to be firm. IV oxytocin was given. Examination of the vagina and perineum revealed a 2nd degree perineal laceration repaired in the usual fashion with 3-0 vicryl rapide suture. Following the repair, sponge, instrument and needle counts were correct. Mom and baby were both in stable condition in the labor suite. Vitals - Labs Vital Signs - I&O Vital Signs Date Time Temp Pulse Resp B/P (MAP) Pulse Ox O2 Delivery O2 Flow Rate FiO2 01/21/23 16:39 36.4 74 18 99/57 (71) Room Air 01/21/23 16:24 81 18 102/59 (73) Room Air 01/21/23 16:09 79 18 99/55 (70) Room Air 01/21/23 15:54 74 18 97/50 (66) Room Air 01/21/23 15:39 71 18 100/59 (73) Room Air 01/21/23 15:24 93 18 104/66 (79) Room Air 01/21/23 15:09 80 18 104/64 (77) Room Air 01/21/23 14:54 77 18 109/74 (86) Room Air 01/21/23 14:39 83 18 114/70 (85) Room Air 01/21/23 14:24 36.1 82 18 113/67 (82) Room Air 01/21/23 14:18 73 18 110/62 (78) Room Air 01/21/23 14:09 81 18 109/56 (73) Room Air 01/21/23 13:55 70 18 127/61 (83) Room Air 01/21/23 13:35 77 18 133/80 (97) 100 Room Air 01/21/23 13:30 100 18 136/73 (94) 100 Room Air 01/21/23 13:25 78 18 126/66 (86) 95 Room Air 01/21/23 13:20 92 18 143/70 (94) 98 Room Air 01/21/23 13:15 106 18 158/86 (110) 99 Room Air 01/21/23 13:10 81 18 117/71 (86) 98 Room Air 01/21/23 13:05 77 18 109/74 (86) 92 Room Air 01/21/23 13:00 81 18 101/61 (74) 100 Room Air 01/21/23 12:55 66 18 106/62 (77) 99 Room Air 01/21/23 12:50 74 18 110/63 (79) 99 Room Air 01/21/23 12:45 67 18 105/63 (77) 98 Room Air 01/21/23 12:40 82 18 106/62 (77) 97 Room Air 01/21/23 12:35 62 18 113/68 (83) 100 Room Air 01/21/23 12:30 66 18 106/58 (74) 99 Room Air 01/21/23 12:25 65 18 107/63 (78) 99 Room Air 01/21/23 12:20 67 18 117/60 (79) 99 Room Air 01/21/23 12:15 64 18 115/59 (77) 99 Room Air 01/21/23 12:05 64 18 103/57 (72) 99 Room Air 01/21/23 12:00 75 18 110/62 (78) 98 Room Air 01/21/23 11:55 85 18 117/69 (85) 98 Room Air 01/21/23 11:50 69 18 112/57 (75) 98 Room Air 01/21/23 11:45 36.2 77 18 107/60 (76) 98 Room Air 01/21/23 11:40 67 18 114/59 (77) 96 Room Air 01/21/23 11:35 63 18 117/54 (75) 97 Room Air 01/21/23 11:30 62 18 114/57 (76) 98 Room Air 01/21/23 11:25 75 18 120/64 (82) 99 Room Air 01/21/23 11:20 83 18 124/65 (84) 97 Room Air 01/21/23 11:15 86 18 119/76 (90) 98 Room Air 01/21/23 11:10 84 18 115/65 (82) 99 Room Air 01/21/23 11:05 72 18 114/67 (83) 100 Room Air 01/21/23 10:45 77 18 124/73 (90) Room Air 01/21/23 10:30 71 18 120/71 (87) Room Air 01/21/23 10:15 75 18 107/58 (74) Room Air 01/21/23 10:00 71 18 107/61 (76) Room Air 01/21/23 09:45 70 18 114/63 (80) Room Air 01/21/23 09:30 67 18 109/57 (74) Room Air 01/21/23 09:00 76 18 112/58 (76) Room Air 01/21/23 08:45 71 18 118/60 (79) Room Air 01/21/23 08:30 80 18 106/69 (81) Room Air 01/21/23 07:45 36.1 74 18 97 Room Air 01/21/23 07:45 36.1 74 18 106/56 (73) 97 Room Air Labs Laboratory Tests 01/21/23 07:55: Syphilis Total Antibody Negative 01/21/23 08:00: White Blood Count 13.2H, Red Blood Count 3.02L, Hemoglobin 6.8*L, Hematocrit 23L , Mean Corpuscular Volume 77L, Mean Corpuscular Hemoglobin 23L, Mean Corpuscular Hemoglobin Concent 29L, Red Cell Distribution Width 17.3H, Platelet Count 254, Mean Platelet Volume 11.8, Immature Granulocyte % (Auto) 1, Neutrophils (%) (Auto) 75, Lymphocytes (%) (Auto) 17, Monocytes (%) (Auto) 7, Eosinophils (%) (Auto) 1, Basophils (%) (Auto) 0, Neutrophils # (Auto) 9.9H, Lymphocytes # (Auto) 2.2, Monocytes # (Auto) 0.9, Eosinophils # (Auto) 0.1, Basophils # (Auto) 0.0, Immature Granulocyte # (Auto) 0.1 01/21/23 09:26: Hemoglobin 9.9#MARIO YUAN MD Jan 21, 2023 18:23
[2023-01-21] MEDS: ACETAMINOPHEN 500 MG TABLET PO PRN (20:16)
[2023-01-21] MEDS: DOCUSATE SODIUM 100 MG CAPSULE PO SCH (20:16)
[2023-01-22 00:36] VITALS: BP 107/68
[2023-01-22] MEDS: IBUPROFEN 600 MG TABLET PO PRN ×2 (00:38→09:25)
[2023-01-22] MEDS: ACETAMINOPHEN 500 MG TABLET PO PRN (04:41)
[2023-01-22 04:43] VITALS: BP 99/57
[2023-01-22 06:02] LABS: BASOPHILS % (AUTO) 0 % (0-10); EOSINOPHILS % (AUTO) 0 % (0-10); HEMATOCRIT 30 % (35-52); HEMOGLOBIN 8.9 g/dL (11.5-16.0); LYMPHOCYTES # (AUTO) 2.2 10^3/uL (1.0-4.0); LYMPHOCYTES % (AUTO) 22 % (12-44); MEAN CORPUSCULAR HEMOGLOBIN 23 pg (25-34); MEAN CORPUSCULAR HGB CONC 30 g/dL (32-36); MEAN CORPUSCULAR VOLUME 75 fL (80-99); MEAN PLATELET VOLUME 11.3 fL (9.0-12.2); MONOCYTES # (AUTO) 0.8 10^3/uL (0.0-1.0); MONOCYTES % (AUTO) 8 % (0-12); NEUTROPHILS # (AUTO) 6.7 10^3/uL (1.8-7.8); NEUTROPHILS % (AUTO) 69 % (42-75); PLATELET COUNT 159 10^3/uL (130-400); WHITE BLOOD COUNT 9.7 10^3/uL (4.3-11.0)
[2023-01-22 08:00] VITALS: BP 130/78
--- NOTE | 2023-01-22 08:21 | Discharge Summary ---
Diagnosis/Chief Complaint Date of Admission Jan 21, 2023 at 05:58 Date of Discharge January 22, 2023 Admission Diagnosis Admission Diagnosis 1. Intrauterine at 40 weeks gestation 2. Anemia iron deficient Discharge Diagnosis 1. Intrauterine at 40 weeks gestation 2. Anemia iron deficient Discharge Summary-OBS Procedures 1. Epidural per anesthesia 2. Spontaneous vaginal delivery 3. Repair of second-degree perineal laceration Discharge Physical Examination Allergies: Coded Allergies: diphenhydramine (Unverified Adverse Reaction, Unknown, Rash, 06/09/22) Vitals & I&Os Intake and Output 01/22/23 00:00 Intake Total 1500 ml Balance 1500 ml Vital Sign - Last 12Hours Date Time Temp Pulse Resp B/P (MAP) Pulse Ox O2 Delivery O2 Flow Rate FiO2 01/22/23 04:43 36.1 71 18 99/57 (71) 97 Room Air General Appearance: No Acute Distress Respiratory: Clear to Auscultation Cardiovascular: Regular Rate Abdominal: Soft (With uterus firm) Hospital Course hemoglobin on January 22 was 8.9 compared to admission of 9.9. Labs Laboratory Tests 01/21/23 09:26: Hemoglobin 9.9#L 01/22/23 05:50: Hemoglobin 8.9L, White Blood Count 9.7, Red Blood Count 3.94, Hematocrit 30L, Mean Corpuscular Volume 75L, Mean Corpuscular Hemoglobin 23L, Mean Corpuscular Hemoglobin Concent 30L, Red Cell Distribution Width 17.4H, Platelet Count 159, Mean Platelet Volume 11.3, Immature Granulocyte % (Auto) 1, Neutrophils (%) (Auto) 69, Lymphocytes (%) (Auto) 22, Monocytes (%) (Auto) 8, Eosinophils (%) (Auto) 0, Basophils (%) (Auto) 0, Neutrophils # (Auto) 6.7, Lymphocytes # (Auto) 2.2, Monocytes # (Auto) 0.8, Eosinophils # (Auto) 0.0, Basophils # (Auto) 0.0, Immature Granulocyte # (Auto) 0.1 Discharge Instructions to patient/family Please see electronic discharge instructions given to patient. Discharge Medications Reviewed and agree with Discharge Medication list on patient's Discharge Instruction sheet LIZA ROBLES MD Jan 22, 2023 08:21
[2023-01-22] MEDS ORDERED: FERR325T24 PO (08:23)
--- NOTE | 2023-01-22 08:24 | Discharge Inst-Women's Service ---
Discharge Inst-Women's Serv Depart Medication/Instructions New, Converted or Re-Newed RX: Transmitted to Pharmacy ([facility]) Problems Reviewed?: Yes Consults/Follow Up Additional Follow Up: Yes (Dr. Escalera In 6 weeks) Activity Activity: Activity as Tolerated Driving Instructions: No Driving for 1 Week Nothing Inside Vagina: No [place] (For 6 weeks) Diet Discharge Diet: Regular Diet Return to The Hospital For: As below Symptoms to Report to : Bleeding Excessive, Fever Over 101 Degrees F, Vaginal Discharge Foul For Any Problems or Questions: Contact Your Physician LIZA ROBLES MD Jan 22, 2023 08:24
[2023-01-22] MEDS ORDERED: FERROUS SULFATE 325 MG (IRON) TABLET PO SCH (09:00)
[2023-01-22] MEDS: DOCUSATE SODIUM 100 MG CAPSULE PO SCH (09:25)
[2023-01-22 16:00] VITALS: BP 122/76
== END 2023-01-22 17:05 | disposition home or self-care (01) | DRG 807 ==
LOC: LDRP 05:58
PROVIDERS: ADMIT Family Medicine; ATTEND Family Medicine
PROC: 10E0XZZ Delivery of Products of Conception, External Approach (ICD-10-PCS; principal; 2023-01-21)
PROC: 0KQM0ZZ Repair Perineum Muscle, Open Approach (ICD-10-PCS; 2023-01-21)
PROC: 3E033VJ Introduction of Other Hormone into Peripheral Vein, Percutaneous Approach (ICD-10-PCS; 2023-01-21)
DX: O99.824 Streptococcus B carrier state complicating childbirth (principal); Z37.0 Single live birth; O99.02 Anemia complicating childbirth; D50.9 Iron deficiency anemia, unspecified; O70.1 Second degree perineal laceration during delivery; Z3A.39 39 weeks gestation of pregnancy; Z91.09 Other allergy status, other than to drugs and biological substances
CPT/HCPCS: 36415; 85018; 85025; 86780; 86850; 86900; 86901